=== PATIENT | male | born 1960 | race African-American/Black ===

== ENCOUNTER 2020-01-22 22:48 | Emergency (ER) | payer MEDICAID, SELFPAY ==
[2020-01-22 22:50] VITALS: BP 116/76; PULSE 109; RESP 14; TEMP 36.7; O2SAT 99; BMI 25.0
--- NOTE | 2020-01-22 23:02 | ED.DCSUM_ITS ---
- ER Visit Summary Date of Service: 01/22/20 Chief Complaint: Abscess History of Present Illness: The patient is a 59 M with an abscess to his right brewster. He noticed this gradually over the last several days. He had been working in the yard. Physical Examination: There is a large pustule on his right brewster with surrounding erythema and tenderness. No necrosis or color change otherwise. Otherwise exam unremarkable. Test Results: Culture pending. Emergency Department Course and Treatment: Pustule was opened with needle. Culture sent at the patient's request. We will treat with Bactrim and Keflex. Follow-up as an outpatient. Return for new or worsening issues. Treatment Plan: As above Disposition: Discharge Impression: Right brewster abscess with cellulitis This note was generated with [employer] dictation software. It may contain incorrect words, spelling, and punctuation that were not noted in review of the chart prior to signing ED Disposition - Plan for ED Patient: Instructions: ED Abscess Incision And Drainage Prescriptions: Smz/Tmp Ds [Bactrim Ds] 1 tab PO BID #14 tab Prescription Printed Cephalexin [Keflex] 500 mg PO Q6 #28 cap Prescription Printed Referrals: Mel Trujillo [NON-STAFF] -
[2020-01-22] MEDS: Cephalexin 250 MG Capsule 500 MG PO (23:16)
[2020-01-22] MEDS: Smz/Tmp Ds Tablet 1 TABLET PO (23:16)
[2020-01-22 23:22] VITALS: PULSE 78; RESP 18; O2SAT 99
== END 2020-01-22 23:49 | disposition home or self-care (01) ==
LOC: ED 23:34
PROVIDERS: Emergency Provider Emergency Medicine
DX: L03.115 Cellulitis of right lower limb (principal)
CPT/HCPCS: 87070; 87077; 87186; 87205; 99283